=== PATIENT | female | born 1950 ===

== ENCOUNTER 2022-05-31 16:40 | Emergency (ER) | payer MEDICARE, OTHER ==
[2022-05-31] MEDS ORDERED: Ciprofloxacin 500 MG Tab PO ONE (16:41)
[2022-05-31 17:10] LABS: ESTIMATED GFR 68 mL/min (>60)
[2022-05-31] MEDS ORDERED: Phenazopyridine 95 MG Tab PO STA (17:32)
[2022-05-31] MEDS ORDERED: Ciprofloxacin in D5W 400 MG in Premix Bag 1 BAG IV ONE ×2 (17:35)
[2022-05-31] MEDS ORDERED: Sodium Chloride 0.9% 1,000 ML IV ONE (17:35)
[2022-05-31] MEDS ORDERED: Ciprofloxacin in D5W 200 ML ONE (18:14)
== END 2022-05-31 21:00 | disposition home or self-care (01) ==
LOC: FB.ED 16:40
DX: R31.9 Hematuria, unspecified (principal)
CPT/HCPCS: 36415; 74176; 80053; 81001; 83605; 83735; 85025; 86140; 87040; 87086; 96365; 99284; A9270; J0744; J7030; 99283